=== PATIENT | male | born 1955 | race African-American/Black ===

== ENCOUNTER 2016-11-11 20:18 | Emergency (ER) | payer OTHER ==
[~2016-11-11] VITALS: Ht 180.3 cm; Wt 97.3 kg
[~2016-11-11 20:18] MED LIST: ASPIRIN 32325 MG/TAB PO; COREG 25MG25 MG/TAB PO; COREG12.5 MG PO; COZAAR 25MG25 MG/TAB PO; COZAAR 50MG50 MG/TAB PO; GLUCOPHAGE XR500 M1 PO
[2016-11-11 20:31] VITALS: BP 192/94; PULSE 46; TEMP 98
== END 2016-11-11 22:36 | disposition home or self-care (01) ==
LOC: COL.ER 20:18
DX: S43.402A Unspecified sprain of left shoulder joint, initial encounter (principal); X58.XXXA Exposure to other specified factors, initial encounter; I25.10 Atherosclerotic heart disease of native coronary artery without angina pectoris; I10 Essential (primary) hypertension; I25.2 Old myocardial infarction

== ENCOUNTER 2018-06-03 02:06 | Observation (INO) | payer BC ==
[~2018-06-03] VITALS: Ht 180.3 cm; Wt 102.2 kg
[2018-06-03 02:43] LABS: BASO % 0.4 % (0.0-2.0); EOS # 0.2 (0.0-0.7); EOS % 3.1 % (0-4.0); GRAN # 3.9 (1.4-6.5); GRAN % 53.8 % (42.2-75.2); HEMATOCRIT 41.5 % (42.0-52.0); HEMOGLOBIN 14.2 g/dl (13.5-18.0); LYMPH # 2.3 (1.2-3.4); LYMPH % 32.4 % (20.0-51.0); MEAN CELL VOLUME 92 fl (80.0-100.0); MEAN CORPUSCULAR HEMOGLOBIN 31 pg (27.0-31.0); MEAN CORPUSCULAR HGB CONC 34 g/dl (33.0-37.0); MEAN PLATELET VOLUME 10.5 fl (7.4-10.4); MONO # 0.7 (0.1-0.6); MONO % 10.2 % (1.7-9.3); PLATELET COUNT 121 K/mm3 (130-400); RED BLOOD COUNT 4.53 M/mm3 (4.20-5.60); REDCELL DISTRIBUTION WIDTH-CV 12.8 % (11.5-14.5)
[2018-06-03] MEDS ORDERED: CRESTOR20 MG PO (02:49)
[2018-06-03] MEDS ORDERED: FLEXERIL5 MG PO (02:50)
[2018-06-03] MEDS ORDERED: ULTRAM 50MG TAB50 MG PO (02:51)
[2018-06-03 02:53] LABS: ALANINE AMINOTRANSFERASE 26 U/L (21-72); ALBUMIN 3.6 gm/dL (3.5-5.0); ALKALINE PHOSPHATASE 65 U/L (50-136); ANION GAP 8 mmol/L (7-16); AST,SGOT 23 U/L (15-37); BILIRUBIN,TOTAL 0.4 mg/dL (0.0-1.0); BLOOD UREA NITROGEN 16 mg/dL (9-20); CARBON DIOXIDE 27 mmol/L (22-30); CHLORIDE 105 mmol/L (98-107); CREATININE, serum 0.92 mg/dL (0.66-1.25); GLUCOSE 119 mg/dL (74-106); LIPASE 65 U/L (23-300); POTASSIUM 3.9 mmol/L (3.4-5.0); SODIUM 140 mmol/L (137-145); TOTAL PROTEIN 6.6 gm/dL (6.4-8.2)
[2018-06-03 03:06] LABS: TROPONIN-I < 0.012 ng/mL (0.000-0.035)
[2018-06-03 05:13] VITALS: BP 151/74; PULSE 44; TEMP 98.4
[2018-06-03] MEDS ORDERED: MULTIPLE VITAMI1 CAP PO (06:02)
[2018-06-03] MEDS ORDERED: OMEGA-3 1000 MG1 CAP PO (06:03)
[2018-06-03] MEDS ORDERED: VITAMIN C500 MG PO (06:03)
[2018-06-03 07:20] LABS: CHOLESTEROL RISK RATIO 6.5
[2018-06-03 09:10] VITALS: BP 138/81; PULSE 46; TEMP 98.4
[2018-06-03 12:10] VITALS: BP 146/84; PULSE 50; TEMP 98.2
[2018-06-03 16:32] VITALS: BP 139/85; PULSE 45; TEMP 97.9
--- NOTE | 2018-06-03 18:00 | NUR ---
No c/o chest pain today. Echo done. Planer Setter saw patient.
[2018-06-03 20:01] VITALS: BP 149/85; PULSE 64; TEMP 98.3
--- NOTE | 2018-06-03 20:30 | NUR ---
Pt. laying in bed watching TV. Pt. is A&OX3, assessment complete. INT to rt. ac patent. Pt. denies pain or other needs, call light within reach.
[2018-06-03 23:59] VITALS: BP 139/84; PULSE 53; TEMP 98.4
[2018-06-04] VITALS (7 sets, daily range): BP systolic 141–173; BP diastolic 73–97; PULSE 47–83; TEMP 97.4–98.4
--- NOTE | 2018-06-04 06:07 | NUR ---
Pt. slept well through the night. Pt. remains A&OX3. INT to rt. ac patent. Pt. denies pain or other needs, call light within reach.
[2018-06-04 06:45] LABS: BASO % 0.7 % (0.0-2.0); EOS # 0.2 (0.0-0.7); EOS % 3.8 % (0-4.0); GRAN # 3.2 (1.4-6.5); GRAN % 54.1 % (42.2-75.2); HEMATOCRIT 43.4 % (42.0-52.0); HEMOGLOBIN 15.2 g/dl (13.5-18.0); LYMPH # 1.6 (1.2-3.4); LYMPH % 27.7 % (20.0-51.0); MEAN CELL VOLUME 91 fl (80.0-100.0); MEAN CORPUSCULAR HEMOGLOBIN 32 pg (27.0-31.0); MEAN CORPUSCULAR HGB CONC 35 g/dl (33.0-37.0); MEAN PLATELET VOLUME 10.5 fl (7.4-10.4); MONO # 0.8 (0.1-0.6); MONO % 13.5 % (1.7-9.3); PLATELET COUNT 132 K/mm3 (130-400); RED BLOOD COUNT 4.79 M/mm3 (4.20-5.60); REDCELL DISTRIBUTION WIDTH-CV 12.7 % (11.5-14.5)
[2018-06-04 07:05] LABS: CREATININE, serum 0.87 mg/dL (0.66-1.25); POTASSIUM 3.7 mmol/L (3.4-5.0)
--- NOTE | 2018-06-04 08:00 | NUR ---
Pt AAOx3 laying in bed with no complaints and denies chest pain. Reports brief chest pain when going to sleep night before last that prompted pt to come into hospital. Neisha scan today.
--- NOTE | 2018-06-04 12:02 | NUR ---
First visit from the pocketbook maker. No needs right now.
[2018-06-04] MEDS ORDERED: COREG 6.256.25 MG/TA PO (12:08)
[2018-06-04] MEDS ORDERED: COZAAR 50MG50 MG/TAB PO (13:53)
[2018-06-04] MEDS ORDERED: COREG 25MG25 MG/TAB PO (13:56)
--- NOTE | 2018-06-04 14:08 | NUR ---
SW attended clinical rounding and met with patient to discuss discharge planning. Patient lives with his Loree in [place]. [facility] . Patient is dc home today with his spouses support.
--- NOTE | 2018-06-04 14:58 | NUR ---
Chest Pain (DC) Education provided - printer did not print copy for pt and staff memeber to sign. Pt ambulated down to 1st floor where picked up by private vehcile
== END 2018-06-04 15:00 | disposition home or self-care (01) ==
LOC: COL.ER 02:06 → SURG 03:26
PROVIDERS: Emergency Medicine; Nurse Practitioner; ADMIT Hospitalist
DX: R07.9 Chest pain, unspecified (principal); I10 Essential (primary) hypertension; E11.9 Type 2 diabetes mellitus without complications; E78.5 Hyperlipidemia, unspecified; G89.29 Other chronic pain; M54.9 Dorsalgia, unspecified; I25.10 Atherosclerotic heart disease of native coronary artery without angina pectoris; Z79.84 Long term (current) use of oral hypoglycemic drugs; Z79.82 Long term (current) use of aspirin; Z95.1 Presence of aortocoronary bypass graft; Z88.8 Allergy status to other drugs, medicaments and biological substances; Z83.3 Family history of diabetes mellitus; Z82.3 Family history of stroke
CPT/HCPCS: A9500; G0378; J1644; J2785

== ENCOUNTER 2018-07-26 11:14 | Emergency (ER) | payer BC ==
[~2018-07-26] VITALS: Ht 180.3 cm; Wt 98.0 kg
[~2018-07-26 11:14] MED LIST changes: +COREG 6.256.25 MG/TA PO; +CRESTOR20 MG PO; +FLEXERIL5 MG PO; +MULTIPLE VITAMI1 CAP PO; +OMEGA-3 1000 MG1 CAP PO; +ULTRAM 50MG TAB50 MG PO; +VITAMIN C500 MG PO
[2018-07-26 11:18] VITALS: TEMP 98.5
[2018-07-26 11:55] LABS: BASO # 0.1 (0.0-0.2); BASO % 0.7 % (0.0-2.0); EOS # 0.2 (0.0-0.7); EOS % 2.8 % (0-4.0); GRAN # 4.4 (1.4-6.5); GRAN % 63.2 % (42.2-75.2); HEMATOCRIT 44.8 % (42.0-52.0); HEMOGLOBIN 15.2 g/dl (13.5-18.0); LYMPH # 1.5 (1.2-3.4); LYMPH % 20.8 % (20.0-51.0); MEAN CELL VOLUME 91 fl (80.0-100.0); MEAN CORPUSCULAR HEMOGLOBIN 31 pg (27.0-31.0); MEAN CORPUSCULAR HGB CONC 34 g/dl (33.0-37.0); MEAN PLATELET VOLUME 10.2 fl (7.4-10.4); MONO # 0.9 (0.1-0.6); MONO % 12.2 % (1.7-9.3); PLATELET COUNT 148 K/mm3 (130-400); RED BLOOD COUNT 4.91 M/mm3 (4.20-5.60); REDCELL DISTRIBUTION WIDTH-CV 13.2 % (11.5-14.5)
[2018-07-26 12:03] LABS: PROTHROMBIN TIME 11.7 SECONDS (9.7-12.8)
[2018-07-26 12:05] LABS: ALANINE AMINOTRANSFERASE 29 U/L (21-72); ALBUMIN 3.9 gm/dL (3.5-5.0); ALKALINE PHOSPHATASE 71 U/L (50-136); ANION GAP 9 mmol/L (7-16); AST,SGOT 23 U/L (15-37); BILIRUBIN,TOTAL 0.6 mg/dL (0.0-1.0); BLOOD UREA NITROGEN 12 mg/dL (9-20); CALCIUM 9.3 mg/dL (8.4-10.2); CARBON DIOXIDE 28 mmol/L (22-30); CHLORIDE 102 mmol/L (98-107); CREATININE, serum 0.93 mg/dL (0.66-1.25); GLUCOSE 159 mg/dL (74-106); LIPASE 43 U/L (23-300); PARTIAL THROMBOPLASTIN TIME 30.6 SECONDS (26.0-37.0); POTASSIUM 3.6 mmol/L (3.4-5.0); SODIUM 139 mmol/L (137-145); TOTAL PROTEIN 7.3 gm/dL (6.4-8.2)
[2018-07-26 12:17] LABS: TROPONIN-I < 0.012 ng/mL (0.000-0.035)
[2018-07-26 14:58] VITALS: BP 152/98; PULSE 50
== END 2018-07-26 14:59 | disposition home or self-care (01) ==
LOC: COL.ER 11:14
PROVIDERS: Emergency Medicine
DX: R07.89 Other chest pain (principal); E11.9 Type 2 diabetes mellitus without complications; I10 Essential (primary) hypertension; Z79.82 Long term (current) use of aspirin; Z95.5 Presence of coronary angioplasty implant and graft; Z79.84 Long term (current) use of oral hypoglycemic drugs

== ENCOUNTER 2018-07-30 07:05 | Outpatient (CLI) | payer BC ==
[~2018-07-30] VITALS: Ht 332.7 cm; Wt 95.3 kg
[2018-07-30] MEDS ORDERED: COREG12.5 MG PO (08:01)
[2018-07-30] MEDS ORDERED: COZAAR 50MG50 MG/TAB PO (08:02)
[2018-07-30 08:05] VITALS: BP 157/95; PULSE 50; TEMP 98
[2018-07-30 08:06] VITALS: BP 157/95; PULSE 50; TEMP 98
[2018-07-30] MEDS ORDERED: CEPHALEXIN500 M1 PO (09:24)
[2018-07-30] MEDS ORDERED: DIOVAN 160MG160 MG PO (09:24)
[2018-07-30 09:30] VITALS: BP 168/93; PULSE 50; TEMP 98
--- NOTE | 2018-07-30 09:30 | NUR ---
Discharge instructions given. Transferred to private car by favian
== END 2018-07-30 09:30 | disposition home or self-care (01) ==
LOC: COL.CAR 07:05
DX: I25.10 Atherosclerotic heart disease of native coronary artery without angina pectoris (principal); Z95.1 Presence of aortocoronary bypass graft; I10 Essential (primary) hypertension; E78.2 Mixed hyperlipidemia; E11.9 Type 2 diabetes mellitus without complications; Z79.82 Long term (current) use of aspirin; Z79.84 Long term (current) use of oral hypoglycemic drugs; Z83.3 Family history of diabetes mellitus; Z82.49 Family history of ischemic heart disease and other diseases of the circulatory system; Z88.8 Allergy status to other drugs, medicaments and biological substances

== ENCOUNTER → 2021-07-14 | Outpatient (CLI) | payer MEDICARE, OTHER ==
[~2021-07-14] MED LIST changes: +CEPHALEXIN500 M1 PO; +DIOVAN 160MG160 MG PO
== END ==
LOC: COL.RAD 08:36
DX: I82.401 Acute embolism and thrombosis of unspecified deep veins of right lower extremity (principal)

== ENCOUNTER 2021-12-14 20:55 | Emergency (ER) | payer OTHER, MEDICARE ==
[~2021-12-14] VITALS: Ht 180.3 cm; Wt 100.0 kg
[2021-12-14 20:59] VITALS: TEMP 97.9
[2021-12-14 22:52] LABS: BASO % 0.6 % (0.0-2.0); EOS # 0.2 K/mm3 (0.0-0.7); EOS % 2.8 % (0.0-4.0); GRAN # 3.6 K/mm3 (1.4-6.5); HEMATOCRIT 42.3 % (42.0-52.0); HEMOGLOBIN 14.9 g/dl (13.5-18.0); LYMPH # 2.4 K/mm3 (1.2-3.4); LYMPH % 33.6 % (20.0-51.0); MEAN CELL VOLUME 90 fl (80.0-100.0); MEAN CORPUSCULAR HEMOGLOBIN 32 pg (27-31); MEAN CORPUSCULAR HGB CONC 35 g/dl (33.0-37.0); MEAN PLATELET VOLUME 9.9 fl (7.4-10.4); MONO # 0.9 K/mm3 (0.1-0.6); MONO % 12.7 % (1.7-9.3); PLATELET COUNT 136 K/mm3 (130-400); RED BLOOD COUNT 4.69 M/mm3 (4.20-5.60); REDCELL DISTRIBUTION WIDTH-CV 12.8 % (11.5-14.5)
[2021-12-14 23:07] LABS: ALBUMIN 3.8 gm/dL (3.4-4.8); BILIRUBIN,TOTAL 0.7 mg/dL (0.2-1.2); CALCIUM 9.2 mg/dL (8.4-10.2); TOTAL PROTEIN 7.3 gm/dL (6.2-8.1)
[2021-12-14 23:13] LABS: TROPONIN-I 0.018 ng/mL (0.00-0.033)
[2021-12-14 23:45] VITALS: BP 177/96; PULSE 47
== END 2021-12-15 00:08 | disposition home or self-care (01) ==
LOC: COL.ER 20:55
PROVIDERS: Personal Emergency Response Attendant
DX: R42 Dizziness and giddiness (principal); R00.1 Bradycardia, unspecified; Z28.310 Unvaccinated for COVID-19

== ENCOUNTER 2023-11-17 11:52 | Day surgery (SDC) | payer OTHER, MEDICARE ==
[~2023-11-17] VITALS: Ht 180.3 cm; Wt 97.0 kg
[~2023-11-17 11:52] MED LIST changes: +ASPIRIN 81M81 MG/TA2 PO; +COREG 3.123.125 MG/T PO; +ELIQUIS 5MG PO; +IMDUR 30MG30 MG/TAB PO; +LR 1,000 ML IV SCH; +NORVASC 5MG5 MG/TAB PO; +Ondansetron 4 MG/2 ML VIAL IV PRN; +THE MEDICINE S200 M2 PO; +VITAMIN D31000 IU PO
[2023-11-17] MEDS ORDERED: PLAVIX 75MG TAB75 MG PO (12:32)
[2023-11-17 12:49] VITALS: BP 142/96; PULSE 56; TEMP 98.3
[2023-11-17] MEDS ORDERED: Lidocaine PF 2% (20 MG/ML) 5 ML VIAL ONE (13:19)
[2023-11-17] MEDS ORDERED: Glycopyrrolate 0.2 MG/ML 1 ML VIAL ONE (13:19)
[2023-11-17 13:40] VITALS: BP 140/83; PULSE 64; TEMP 98.1
[2023-11-17 13:55] VITALS: BP 161/88; PULSE 54
[2023-11-17 14:10] VITALS: BP 156/88; PULSE 54
--- NOTE | 2023-11-17 14:30 | NUR ---
1340 RETURNS TO ROOM 4 PER CART. AWAKE, ALERT. RESP UNLABORED. AMBULATES TO RECLINER WITH STANDBY ASSIST. DENIES NAUSEA OR ABD PAIN. VITAL SIGNS OBTAINED. CALL LIGHT AT SIDE. IN ROOM. 1355 TOLERATES PO JUICE WITHOUT NAUSEA 1410 DISHARGE INSTRUCTIONS REVIEWED. PATIENT VERBALIZES UNDERSTANDING. COPY PROVIDED IN DISCHARGE FOLDER 1411 DR. ANDERS HERE TO VISIT WITH PATIENT 1420 DRESSES SELF
[2023-11-17 14:33] VITALS: BP 107/63; PULSE 63
== END 2023-11-17 14:45 | disposition home or self-care (01) ==
LOC: SDCO 11:52
DX: K92.1 Melena (principal); L29.9 Pruritus, unspecified; R14.3 Flatulence; R10.32 Left lower quadrant pain; R14.0 Abdominal distension (gaseous); K64.1 Second degree hemorrhoids; E11.9 Type 2 diabetes mellitus without complications; Z79.02 Long term (current) use of antithrombotics/antiplatelets; Z79.84 Long term (current) use of oral hypoglycemic drugs; Z86.010 Personal history of colon polyps; Z95.5 Presence of coronary angioplasty implant and graft; Z95.1 Presence of aortocoronary bypass graft; Z86.718 Personal history of other venous thrombosis and embolism; Z95.818 Presence of other cardiac implants and grafts; Z79.01 Long term (current) use of anticoagulants
CPT/HCPCS: J2704; J7120